=== PATIENT | male | born 1930 | race Caucasian/White ===

== ENCOUNTER 2016-12-13 11:59 | Inpatient (IN) | payer MEDICARE, OTHER ==
[~2016-12-13] VITALS: Ht 172.7 cm; Wt 85.0 kg
--- NOTE | ~2016-12-13 | ER ---
PATIENT'S NAME: RAMÍREZ [facility] AGE: 86 Y [address] ROOM: [place] [address] LOCATION: GPCU ADMIT DATE: 12/13/2016 ER/Outpatient Report DISCHARGE DATE: FAMILY PHYSICIAN: Adryan Lee MD ATTENDING PHYSICIAN: Sarah MAHONEY TIME OF ARRIVAL: 1159 hours. TIME OF EVALUATION: 1200 hours. CHIEF COMPLAINT: Chest pain. HISTORY OF PRESENT ILLNESS: The patient is an 86-year-old male presents to the emergency department today with chief complaint of chest pain. He reports this started 5 hours prior to arrival. Denies any nausea or vomiting. No shortness of breath. No diaphoresis. The patient reports this started in his left arm and radiated onto his left chest. It was a "hard" squeezing dull type pain. Denies any syncope. Denies any current pain at this time. The patient reports he has not had a heart cath in sometime and he has not had a stress test in sometime. The patient does have a history of heart disease with CABG and stenting. The patient was given aspirin and nitro en route. The nitro did resolve his pain. PAST MEDICAL HISTORY: Jlk-uwggxjw-sgrsqznku diabetes mellitus, emphysema, coronary artery disease, and hypertension. PAST SURGICAL HISTORY: Coronary artery bypass grafting, heart stents, tonsils, nose, and tongue. FAMILY HISTORY: Heart disease in brothers. SOCIAL HISTORY: The patient quit smoking in 1982. He denies any current tobacco use. Denies any alcohol or illicit drug use. ALLERGIES: OLD RED HEART CATH DYE. MEDICATIONS: Please see list. PATIENT'S NAME: RAMÍREZ [facility] AGE: 86 Y [address] ROOM: [address] [address] LOCATION: GPCU ADMIT DATE: 12/13/2016 ER/Outpatient Report DISCHARGE DATE: FAMILY PHYSICIAN: Adryan Lee MD ATTENDING PHYSICIAN: Sarah MAHONEY BIOLOGY TUTOR: Dr. Urrutia in [facility]. REVIEW OF SYSTEMS: All systems are reviewed by myself and are negative with the exception of those discussed in HPI and past medical history. PHYSICAL EXAMINATION: VITAL SIGNS: Weight 89.3 kg. Blood pressure 167/56, pulse 72, respiratory rate 16, temperature 97.6, and oxygen saturation 93% on room air. GENERAL: The patient is an 86-year-old male who appears of stated age in no acute distress at this time. HEENT: Normocephalic, atraumatic. Pupils are equal, round, and reactive to light. Mucous membranes are moist. NECK: Supple. There is no nuchal rigidity. CARDIOVASCULAR: Irregularly irregular. No murmurs, rubs, or gallops. LUNGS: Clear to auscultation bilaterally. No wheezes, rales, or rhonchi. ABDOMEN: Soft, nontender, and nondistended. No rebound, rigidity, or guarding. MUSCULOSKELETAL: The patient moves all 4 extremities. SKIN: Warm and dry. LABS AND X-RAYS: EKG is obtained and it is interpreted by myself at 12:09 shows atrial fibrillation with a rate of 72, normal axis, normal interval. No ST- elevation. There is ST depression noted 0.5 mm in V4, V5, V6. CBC is normal. INR is 3.25. D-dimer is normal. CMP is unremarkable except for BUN 50, creatinine 2.3. LFTs normal. Mag is normal. Cardiac enzymes are normal. Pro-BNP is 1804. Chest x-ray shows no acute process. IMPRESSION: 1. Chest pain, rule out acute coronary syndrome with history of coronary artery disease, atrial fibrillation. 2. Abnormal EKG. 3. Renal insufficiency, unclear chronicity at this time. 4. Elevated BNP. 5. Initial visit. EMERGENCY DEPARTMENT COURSE: The patient brought back to the examination. Seen and evaluated by myself. IV is established. Laboratory analysis and imaging are obtained as described above. The patient was on nitroglycerin drip and this is continued. The patient is currently pain-free at this time. The patient is reassessed. His pain is still resolved. I have discussed results with the patient and his PATIENT'S NAME: GRETA ELMORE [facility] AGE: 86 Y [address] ROOM: [id number] [place], [place] [address] [facility] ADMIT DATE: 12/13/2016 ER/Outpatient Report DISCHARGE DATE: FAMILY PHYSICIAN: Adryan Lee MD ATTENDING PHYSICIAN: Sarah MAHONEY. Their questions are answered. I have contacted Dr. Mahoney with the Hospitalist Service. He has seen and evaluated the patient down here in the emergency department. Dr. Deluca with Cardiology has seen and evaluated the patient down here in the emergency department as well. DISPOSITION: The patient is admitted under the care of Dr. Mahoney in the Hospitalist Service in stable condition. DO KJ ESTEBAN/franko /[id number] d: 12/14/16716 t: 12/15/16 0854, OUTPATIENT REPORT
--- NOTE | ~2016-12-13 | CON ---
PATIENT'S NAME: GRETA LUNDY [facility] AGE: 86 Y [address] ROOM: [place] [address] LOCATION: [facility] ADMIT DATE: 12/13/2016 Consultation DISCHARGE DATE: FAMILY PHYSICIAN: Adryan Lee MD ATTENDING PHYSICIAN: Hoang Sifuentes DATE OF CONSULTATION: 12/13/2016 CARDIOLOGY CONSULTATION REPORT REFERRING PHYSICIAN: Denzel Smith MD REASON FOR CONSULTATION: Chest pain and coronary artery disease. HISTORY OF PRESENT ILLNESS: Mr. Lundy is a pleasant, 86-year-old male with history of coronary artery disease status post two-vessel coronary artery bypass graft in 1983. The patient stated that he had probably balloon angioplasty in 1981. Subsequently he had two-vessel coronary artery bypass graft at [facility] in 1983. The patient stated that he has been symptomatic since the last few days with complaints of left arm pain and back pain. Today he had recurrent episodes of pain with radiation to the chest and hence, he was concerned and he was brought to the emergency room. Presently, he is chest pain-free. The patient stated he is physically not very active due to his chronic left knee pain. Has also chronic shortness of breath with exertion with no recent change. He denied any palpitations. REVIEW OF SYSTEMS: The patient denied any recent change in vision. No history of nausea or vomiting. No history of palpitations. No history of cough or expectoration. No history of diarrhea. The patient has a history of off and on constipation. Has chronic history of left knee pain. The patient stated his urinary stream is not good at the present time. Review of other systems is essentially negative. PAST MEDICAL HISTORY: 1. Coronary artery disease status post coronary artery bypass grafting. 2. Diabetes mellitus, diet controlled. 3. Hypertension. 4. Chronic left knee pain. 5. Atrial fibrillation, on long-term anticoagulation. PERSONAL HISTORY: PATIENT'S NAME: GRETA LUNDY [facility] AGE: 86 Y [address] ROOM: [place] [address] LOCATION: [facility] ADMIT DATE: 12/13/2016 Consultation DISCHARGE DATE: FAMILY PHYSICIAN: Adryan Lee MD ATTENDING PHYSICIAN: Hoang Sifuentes Nonsmoker. Nonalcoholic. FAMILY HISTORY: Five of his siblings had coronary artery disease. SOCIAL HISTORY: The patient stated that he lives by himself and his son lives nearby. CURRENT MEDICATIONS: At home include: 1. Metoprolol. 2. Hydrochlorothiazide. 3. Aspirin. 4. Warfarin. 5. Atorvastatin. 6. Gemfibrozil. 7. The doses are not available. PHYSICAL EXAMINATION: GENERAL APPEARANCE: He is awake, alert, and oriented and in no distress. VITAL SIGNS: His pulse rate is 76 beats per minute and it is irregularly irregular. Blood pressure 144/74 mmHg, and respiratory rate 18. He is afebrile. HEENT: His head is atraumatic and normocephalic. Tongue is moist. Pupils are bilaterally equal and reactive. NECK: No significant jugular venous distention is present. CARDIOVASCULAR: S1 and S2 are audible. They are irregular in rate and rhythm. No audible murmur is present. RESPIRATORY: Bilateral vesicular breath sounds are audible. The breath sounds are diminished at bases. A few basilar crackles are audible. GASTROINTESTINAL: Abdomen has mild distention. Soft and nontender. Bowel sounds are present. EXTREMITIES: Show no significant pedal edema. NEUROLOGIC: The patient is awake, alert, and oriented. No focal neurological deficits noted. SKIN: Warm and dry. LABORATORY DATA: His EKG showed atrial fibrillation with a ventricular rate of 68 beats per minute. Nonspecific T-wave abnormality in inferior and anterolateral leads. CBC; white blood cell count 8.8, hemoglobin 11.7, hematocrit 36.0, and platelet count 301,000. PTT 34.5, INR 3.25, and D-dimer 0.37. Serum biochemistry; sodium 135, potassium 4.2, chloride 99, CO2 of 25, glucose 175, calcium 9.4, BUN 50, and creatinine 2.3. AST 16, ALT 18, CPK 71, CK-MB less than 0.5, and magnesium 2.2. Troponin is less than 0.04. ProBNP is 1804. PATIENT'S NAME: GRETA LUNDY [facility] AGE: 86 Y [address] ROOM: [place], [place] [address] LOCATION: [facility] ADMIT DATE: 12/13/2016 Consultation DISCHARGE DATE: FAMILY PHYSICIAN: Adryan Lee MD ATTENDING PHYSICIAN: Hoang Sifuentes ASSESSMENT AND PLAN: 1. Coronary artery disease status post coronary artery bypass surgery. We will continue current medical therapy with aspirin, beta blockers, and statins. 2. Chest pain. In view of history of coronary artery disease, we will monitor patient on telemetry. Obtain serial EKGs and serial cardiac isoenzymes. Continue medical therapy with aspirin, beta blockers, and statins. If troponins are negative, we will schedule patient for stress test in a.m. 3. Renal failure. The patient has elevated BUN and creatinine. We will try to obtain previous records to see his baseline renal function. Management per hospitalist team. 4. Atrial fibrillation with controlled ventricular rate. His INR is supratherapeutic, and hence, Coumadin is being held. Once INR is subtherapeutic, we will start the patient on heparin or Lovenox, pending workup for his chest pain. 5. Diabetes, diet controlled. Management per hospitalist team. We will obtain previous records from Dr. Urrutia's office and from [facility] regarding coronary artery bypass graft report. We will follow the patient along with you. Thank you for allowing us in taking part in the care of this pleasant patient. The plan of care was discussed with the patient and his family. MD COLLETTE ZAPATA/franko /[id number] d: 12/13/16 1630 t: 12/30/16 1743, CONSULTATION REPORT
--- NOTE | ~2016-12-13 | ECHO ---
Transthoracic Echocardiography Report (TTE) Demographics Patient Name GRETA ELMORE Date of Study 12/14/2016 Patient Number [id number] Visit Number [id number] Date of 1930 Room Number G6323 Accession Number [id number] Gender Male Age 86 year(s) Referring Jesus Kang MD Senior Engineering Tech Colt Costa [facility], Physician Denzel Smith RVT Physician Interpreting Kacy Hoang Single Needle Tufting Machine Operator Physician Supervising Ordering Physician Denzel Smith MD/MLP Nurse Stress Leadership Development Instructor Conclusions Contractility Score Summary At rest the following contractility abnormalities were noted: Hypokinesis of the Mid inferior, the Apical inferior and the Basal inferior segments. Contractility of all other segments appeared normal. Summary The estimated left ventricular ejection fraction is 55%. Mild concentric left ventricular hypertrophy. Diastolic function indeterminate due to patient's arrhythmia. Mildly dilated right ventricle. The right atrium is severely dilated. The aortic valve is moderately sclerotic. Mild to moderate tricuspid regurgitation by color Doppler. Procedure Type of Study TTE procedure:2D Echocardiogram. Procedure Date Date: 12/14/2016 Start: 07:41 AM Study Location: Inpatient Portable Technical Quality: Adequate visualization Indications:Chest pain. Appropriate Use Criteria: 9 Patient Status: Routine Rhythm: Atrial fibrillation HR: 79 bpm BP: 143/80 mmHg Allergies - Contrast. M-Mode/2D Measurements LV Diastolic Dimension: 4.66 cm LV Systolic Dimension: 3.34 cm LV Septum Diastolic: 1.03 cm LV PW Diastolic: 1.05 cm AO Root Dimension: 2.7 cm Cardiac Output: 3.91 l/min AV Cusp Separation: 2 cm RV Diastolic Dimension: 2.87 cm LA volume: 45 ml LVOT: 2.1 cm RV Base: 4.12 cm LVOT VTI: 14.3 cm RV Mid: 2.37 cm LV Stroke volume: 49.5 ml TAPSE: 1.69 cm TDI-S': 10.2 cm/s Doppler Measurements AV Peak Velocity: 1.12 m/s MV Peak E-Wave: 0.99 m/s AV Peak Gradient: 5.02 mmHg AV Mean Gradient: 3 mmHg MV P1/2t: 51 msec LVOT Peak Velocity: 0.69 m/s TR Velocity:2.87 m/s TR Gradient:32.95 mmHg Estimated PASP: 37.95 mmHg Estimated RAP:5 mmHg Estimated RVSP: 38 mmHg E' Septal Velocity: 0.1 m/s E' Lateral Velocity: 0.16 m/s Findings Left Ventricle Mild concentric left ventricular hypertrophy. Diastolic function indeterminate due to patient's arrhythmia. Right Ventricle Mildly dilated right ventricle. Left Atrium Normal left atrial size. Right Atrium The right atrium is severely dilated. IVC measures 1.8 cm with inspiratory collapse. Mitral Valve Mild mitral regurgitation by color Doppler. Aortic Valve The aortic valve is moderately sclerotic. There is trivial aortic regurgitation by color Doppler. Tricuspid Valve Mild to moderate tricuspid regurgitation by color Doppler. The pulmonary pressure (RVSP) is 37.95 mmHg. Pulmonic Valve Normal pulmonic valve structure and function. Pericardial Effusion No evidence of pericardial effusion. Miscellaneous Visualized portions of the aortic root and ascending aorta appear normal in size. Pleural Effusion No evidence of pleural effusion. Contractility Score LV regional wall motion:(0-Non visualized 1-Normal 2-Hypokinesis 3-Akinesis 4-Dyskinesis 5-Aneurysm) Signature dtt: JOANN BURGER dtd: 12/14/16 0741 Physician Self Edit
--- NOTE | ~2016-12-13 | HP ---
PATIENT'S NAME: GRETA ELMORE [facility] AGE: 86 Y [address] ROOM: [place] [address] LOCATION: [facility] ADMIT DATE: 12/13/2016 History & Physical DISCHARGE DATE: FAMILY PHYSICIAN: Adryan Lee MD ATTENDING PHYSICIAN: Hoang Sifuentes DATE OF SERVICE: CHIEF COMPLAINT: Chest pain. HISTORY OF PRESENT ILLNESS: The patient is an 86-year-old gentleman with a history of COPD, CKD, diabetes mellitus, and CAD, status post CABG in 1982, who presents here with chest pain. The patient reports that around 9 o'clock this morning, he felt left arm numbness initially. Subsequently, numbness started radiating to his chest and back. He reports his chest pain as substernal, aching with squeezing quality with constant frequency and with maximum pain which he rates at 7/10. The patient reports that his symptoms was worsened on exertion and got better while he rested and when he was started on nitroglycerin drip via EMS. The patient denies diaphoresis, worsening shortness of breath, dizziness, productive cough, fever, chills, abdominal pain, nausea, vomiting, and diarrhea. The patient reports that the last time he had this symptom was in 1982 when he had his CABG. He reports that he follows with Dr. Purcell as his dance director as outpatient. The patient reports that he used to have routine stress test after CABG and his last stress test was done 5 years ago and was normal. The patient also reports a history of kidney disease but does not remember. He reports that his losartan was discontinued because of increasing kidney numbers. PAST MEDICAL HISTORY: 1. CAD status post CABG. 2. Possible chronic kidney disease. 3. COPD. 4. Diabetes mellitus type 2. 5. Hypertension. 6. Atrial fibrillation, on Coumadin. PAST SURGICAL HISTORY: CABG in 1982. FAMILY HISTORY: The patient reports that his 5th brother from coronary artery disease. PATIENT'S NAME: GRETA ELMORE [facility] AGE: 86 Y [address] 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 Distant history of smoking, he stopped smoking in 1982. Currently does not drink alcohol. Last drink close to 10 years ago. The patient lives by himself in the [place], [place]. MEDICATION: Currently being reconciled. REVIEW OF SYSTEMS: All systems have been reviewed and are negative except for what I mentioned in the HPI. PHYSICAL EXAMINATION: VITAL SIGNS: Temperature 97.6, blood pressure 167/86, heart rate of 72, respiratory rate of 16, oxygen saturation 93% on room air. GENERAL APPEARANCE: The patient is alert and awake. No acute distress. HEAD: Normocephalic, atraumatic. EYES: Extraocular muscles intact. NOSE: No nasal discharge. EARS: No ear discharge. ORAL CAVITY: Moist oral cavity. NECK: No JVD. CHEST: Clear to auscultation bilaterally. HEART: Irregularly irregular. No murmurs, rubs, or gallops heard. Distal pulses present. No JVD. ABDOMEN: Soft, nontender, and nondistended. Bowel sounds present. EXTREMITIES: Warm to touch. No edema. SKIN: Warm to touch. No lesion noted. MUSCULOSKELETAL: Range of motion intact. No obvious joint effusion noted. BATCH FREEZER OPERATOR: Alert and oriented x3. Motor and sensory grossly intact. LABORATORY DATA: Troponin x1 negative. D-dimer negative. Sodium 135, creatinine 2.3, BUN of 50, blood glucose 175, potassium of 4.2, CO2 of 25. Hemoglobin 11.7, white blood cell count of 8.8, and platelet of 301. Chest x-ray does not show any cardiopulmonary changes. EKG shows atrial fibrillation with rate of 72. There is mild ST depression on V3 to V6. ASSESSMENT AND PLAN: 1. Chest pain. The patient is an 86-year-old gentleman with past medical history of coronary artery disease, status post CABG in 1982, strong PATIENT'S NAME: GRETA ELMORE [facility] AGE: 86 Y [address] ROOM: [place], [place] [address] LOCATION: [facility] ADMIT DATE: 12/13/2016 History & Physical DISCHARGE DATE: FAMILY PHYSICIAN: Adryan Lee MD ATTENDING PHYSICIAN: Hoang Sifuentes family history of coronary artery disease, hypertension, and hyperlipidemia who presents here with somewhat typical chest pain. The patient reports that pain is similar to his last pain that resulted him to have CABG in 1982. Initial EKG shows mild ST changes from V3 to V6. Initial troponin negative. Etiology most likely secondary to coronary artery disease as the patient has a high pretest probability to have cardiac disease due to his risk factors and presentation. We will admit the patient for observation. We will get serial troponin. Keep the patient on telemonitor. We will acquire echocardiogram. We will acquire Lexiscan stress test. We will consult cardiology for further care and management. To continue aspirin, we will increase his Lipitor dose of 10 mg to 80 mg. We will start his home medications of Lopressor 75 mg b.i.d. We will discontinue nitroglycerin drip and have nitroglycerin as needed. 2. Elevated creatinine, etiology most likely chronic kidney disease. The patient reports that he had some kidney abnormality requiring his losartan to be discontinued. Currently I do not have any labs to compare today's creatinine of 2.3. We will acquire urine protein to creatinine ratio and we will also acquire kidney ultrasound to further investigate the kidney function. His baseline kidney function must be known and his disease has to be somewhat evaluated as patient might need coronary angiogram during this stay. If needed, we will consult Nephrology. 3. Persistent atrial fibrillation. The patient currently on Coumadin. INR of 3.12. We will hold the Coumadin today. We will start acquiring INR daily. Pharmacy to dose Coumadin to keep INR between 2-3. 4. Diabetes mellitus type 2. The patient reports that he was on metformin but no longer uses it. We will acquire hemoglobin A1c and start the patient on low-dose sliding scale. We will also start the patient on diabetic diet. 5. Chronic obstructive pulmonary disease, stable. DuoNeb as needed. 6. Hypertension. Continue Lopressor. Assessment and plan was discussed with the patient and family member. Greater than 50 minutes was spent on patient care. 50% of time spent on direct patient care and discussion with the patient and family. We will admit the patient for observation for ACS rule out. MD CHAY SCHNEIDER/franko PATIENT'S NAME: GRETA ELMORE [facility] AGE: 86 Y [address] ROOM: [place] [address] LOCATION: [facility] ADMIT DATE: 12/13/2016 History & Physical DISCHARGE DATE: FAMILY PHYSICIAN: Adryan Lee MD ATTENDING PHYSICIAN: Hoang Sifuentes /[id number] D: [id number] T: [id number] HISTORY & PHYSICAL
--- NOTE | ~2016-12-13 | CATH ---
Cardiac Diagnostic + PCI Report Demographics Patient Name RAMÍREZ HERNANDES Gender Male Date of 1930 Age 86 year(s) Patient Number [id number] Date of Study 12/14/2016 Visit Number [id number] Room Number G6[address] [place] [id number] Ht 172.72 cm Wt 84.82 kg Referring Jesus Lamb Primary Physician Physician Performing [facility] Secondary Physician Physician Natalya CANTRELL Diagnostic [facility] Assisting Physician Physician Natalya CANTRELL Interventional [facility] Physician Skidder Loader Physician Natalya CANTRELL Findings and Conclusions Diagnostic Findings and Conclusion 1. Critical one vessel disease. [place] RCA with diffuse and critical stenosis. 2. SVG sequential graft from RPDA to RPLV has critical lesion in distal portion of graft, 99% with KIANNA II flow. 3. Moderate disease in large diagonal branch about 50% stenosis. Diagnostic Recommendations 1. PCI of SVG graft with WERO, supplies Rt PLV/PDA. 2. Bare metal stent due to patient being on oral anticoagulation for atrial fibrillation. Interventional Findings and Conclusion Successful PCI of SVG to RPDA and RPLV branch with BMS using filter wire protection. asa, plavix for 1 month and then stop plavix. continue coumadin and asa ec 81 mgs daily indefinitely. Patient tolerated the procedure well. Interventional Recommendations Continue regular medications. Patient will be observed overnight. Hydration and followup creatinine. Continue current medications. Patient has been instructed to not lift anything more than 5 pounds for 1 week. I will plan on seeing the patient back in 2 week(s). Aggressive medical therapy for coronary artery disease. Recommend aggressive risk factor modification. ASA. Statin. Beta Beltran. Aggressive control of blood pressure. Dual Anti-platelet therapy. Cardiac diet . Optimization of medical therapy as an outpatient. Referral to Cardiac Rehabilitation now and at discharge . Procedure Description The patient was brought to the diagnostic cardiac catheterization-EP laboratory in the fasting, non-sedated state. Informed consent was obtained in the written and verbal form after the risks and benefits were explained. The patient had no further questions and agreed to proceed. The planned puncture-incision site(s) were shaved and prepped with ChloraPrep and draped in the usual sterile manner. Conscious sedation, supplemental oxygen, and pain control medications were delivered by a registered nurse under physician guidance. Surface ECG rhythm, blood pressure measurement, and pulse oximetry were monitored throughout the procedure. Arterial access. The access site was infiltrated with lidocaine. The vessel was entered with the Seldinger technique. A sheath was advanced into the vessel and used for catheter placement. Selective left coronary angiography. A catheter was advanced into the left coronary vessel ostium under Fluoroscopic guidance. Contrast was injected by hand. Images were obtained in multiple projections. Selective right coronary angiography. A catheter was advanced into the right coronary vessel ostium under fluoroscopic guidance. Contrast was injected by hand. Images were obtained in multiple projections. Selective SVG angiography. A catheter was advanced into the graft proximal anastomosis under fluoroscopic guidance. Contrast was injected by hand. Images were obtained in multiple projections. Left heart catheterization. A catheter was advanced across the aortic valve to the left ventricle under fluoroscopic guidance. Resting hemodynamics were obtained. Arterial artery hemostasis. Hemostasis was achieved. The patient was transferred to a regular nursing floor via cart accompanied by a nurse. The patient left the laboratory in stable condition. Diagnostic Cath Status: Urgent Interventional Cath Status: Urgent Procedure Procedure Type Diagnostic procedure:Angiography:, Coronary Angios, [facility] PCI procedure:Bare Metal Coronary Stent:, Graft Indications: Elevated cardiac enzymes. The procedure was explained in detail to the patient. Risks, complications and alternative treatments were reviewed. Written consent was obtained. Medications Reviewed with Patient prior to Procedure. Angiographic Findings Dominance: Right Cardiac Arteries and Lesion Findings LMCA: Normal (0% Stenosis). LAD: Abnormal.1. 20% mid. Collaterals to RCA. Lesion on 1st Diag: Proximal subsection.50% stenosis . Pre procedure KIANNA II flow was noted. Lesion on Mid LAD: Mid subsection.20% stenosis . Pre procedure KIANNA II flow was noted. LCx: Normal (0% Stenosis). RCA: Abnormal.1. Proximal to Mid 95% stenosis. 2. Distal 100 stenosed. Lesion on Prox RCA: Proximal subsection.95% stenosis . Pre procedure KIANNA I flow was noted. Graft Lesions Lesion on Aorta Right to R PDA (complex): Middle body.99% stenosis 12 mm length reduced to 0%. Pre procedure KIANNA II flow was noted. Post Procedure KIANNA III flow was present. A good run off was present.The lesion was diagnosed as a high risk lesion.Culprit lesion. Devices used - Filterwire 190 cm. Number of passes: 1. - Emerge Balloon 2.5 x 15. 1 inflation(s) to a max pressure of: 8 jennifer. - 4.0 x 20 Rebel Stent. 1 inflation(s) to a max pressure of: 14 jennifer. Cardiac Grafts - There is a Vein graft that originates at the Aorta Right and attaches to the R PDA and to the R PAV (Y graft). Cardiac Collaterals - collateral flow from the Dist LAD to the Dist RCA. Coronary Tree Procedure Data Procedure Date Date: 12/14/2016Start: 12:13 PMEnd: 01:26 PM Entry Locations - Retrograde Percutaneous access was performed through the Right Radial artery (Primary location). A 6 Fr sheath was inserted. Hemostasis was successfully obtained using an R band. Closure Comments: 15 cc of air in the R band performed by cindy mcintosh . Procedure Medications Order and Administration + + + + + !Time !Medication !Dosage !Route ! + + + + + !12/14/2016 12:07 !Fentanyl !50 mcg !I.V. ! !PM ! ! ! ! + + + + + !12/14/2016 12:08 !Versed !1 mg !I.V. ! !PM ! ! ! ! + + + + + !12/14/2016 12:15 !Oxygen !2 l/min !NC ! !PM ! ! ! ! + + + + + !12/14/2016 12:18 !Oxygen !4 l/min !NC ! !PM ! ! ! ! + + + + + !12/14/2016 12:21 !Radial Verapamil !2.5 mg ! ! !PM ! ! ! ! + + + + + !12/14/2016 12:30 !Angiomax (Bivalirudin) (ACC_5)!65 mg !I.V. bolus ! !PM ! ! ! ! + + + + + !12/14/2016 12:32 !Angiomax (Bivalirudin) (ACC_5)!1.75 !I.V. bolus ! !PM ! !mg/kg/hr ! ! + + + + + !12/14/2016 12:44 !D5W 1000ml w/ 150 mEq Sodium !0 ml/hr !I.V. ! !PM !Bicarb ! ! ! + + + + + !12/14/2016 01:02 !Oxygen !0 l/min !NC ! !PM ! ! ! ! + + + + + !12/14/2016 01:06 !D5W 1000ml w/ 150 mEq Sodium !80 ml/hr !I.V. ! !PM !Bicarb ! ! ! + + + + + !12/14/2016 01:06 !Plavix (ACC_8) !600 mg !P.O. ! !PM ! ! ! ! + + + + + Devices Used - A5 Fr. BS JR 4 Diag. Catheterwas used for:Right coronary angiography. - A5 Fr. BS JL 3.5 Diag. Catheterwas used for:Left coronary angiography. - A6 Fr. MPA1 JJ Guide Catheterwas used for:SVG Intervention. Contrast Material - Isovue 13982 ml Fluoroscopy Time: Diagnostic: 8:48 minutes. Total: 8:48 minutes. Fluoroscopy Dose: Diagnostic: 1011 mGy. Total: 1011 mGy. Estimated Blood Loss: 20 ml. Additional [facility] PCI Information PCI Indication:PCI for high risk Non-STEMI or unstable angina. Medical History Allergies - Contrast. Risk Factors The patient risk factors include: prior CABG on 07/18/1985;treated hypertension, family history of premature CAD, insulin-treated diabetes mellitus, chronic lung disease, last creatinine: 2.1 mg/dl, creatinine clearance: 31.42 ml/min and dyslipidemia. Admission Data Admission Date: 12/14/2016 Admission Time: 01:00 PM Admit Source: Emergency department Insurance Payors: Medicare. Admission Medications + +------+------+ + + + + !Medication !Dosage!Times !Last !Last !Administered !Comments ! ! ! !Per !Delivery !Delivery ! ! ! ! ! !Day !Date !Time ! ! ! + +------+------+ + + + + !Aspirin ! ! ! ! ! ! ! !(any) ! ! ! ! ! ! ! + +------+------+ + + + + !Statin ! ! ! ! ! ! ! !(any) ! ! ! ! ! ! ! + +------+------+ + + + + !Beta ! ! ! ! ! ! ! !Beltran ! ! ! ! ! ! ! !(any) ! ! ! ! ! ! ! + +------+------+ + + + + Clinical Evaluation Leading to Procedure - The patient's CAD presentation was assessed as: Non-STEMI.The symptom onset was first noted on 12/13/2016 12:00 AM(time was estimated). - The patient's anginal syndrome during the past two weeks was assessed as: Class III according to the [place] Cardiovascular Society Classification System (CCS). Anti-anginal medications were prescribed during the past two weeks. The medication is: Beta Blockers. - The patient has been in a state of heart failure within the past two weeks. - The patient's heart failure status was assessed as NYHA Class II. Snapshots Hemodynamics Condition: Rest O2 Consumption: Estimated: 227.57Heart Rate: 72 bpm Pressures (mmHg) +-----+ + !Site !Pressure ! +-----+ + !LV !92/13 ,13 ! +-----+ + !LV !93/12 ,10 ! +-----+ + !AO !120/70 (92) ! +-----+ + !LV !95/6 ,13 ! +-----+ + !AO !122/66 (89) ! +-----+ + Valve Gradients and Areas + +---------+---------+---------+ +---------+ + !Valve !Peak !Mean !Area !Index !Flow !Source ! + +---------+---------+---------+ +---------+ + !Aortic !0 !0 ! ! ! ! ! + +---------+---------+---------+ +---------+ + !Aortic !0 !0 ! ! ! ! ! + +---------+---------+---------+ +---------+ + Shunts Oxygen Values O2 Capacity 159.12 O2 Consumption 227.57 Discharge Data Discharge Date: 12/15/2016 Hospital Status: Inpatient Signatures dtt: NATALYA BURGER dtd: 12/14/16 1213 Physician Self Edit
--- NOTE | ~2016-12-13 | DS ---
PATIENT'S NAME: GRETA ELMORE [facility] AGE: 86 Y [address] ROOM: G6323 [place], [place] [address] LOCATION: GPCU ADMIT DATE: 12/14/2016 Discharge Summary DISCHARGE DATE: 12/15/2016 FAMILY PHYSICIAN: Adryan Lee MD ATTENDING PHYSICIAN: Sarah MAHONEY CONSULTING PHYSICIAN: Natalya Woodruff MD DISCHARGE DIAGNOSES: 1. Unstable angina status post PCI SVG to RPDA with bare metal stent. 2. Chronic atrial fibrillation on Coumadin. 3. Long-term anticoagulation, on Coumadin. 4. Essential hypertension. 5. Diabetes mellitus type 2. 6. Chronic kidney disease, stage 3-4. HOSPITAL COURSE: Please refer to admitting history and physical as dictated by Dr. Mahoney. Briefly, the patient was admitted to [facility] with complaints of chest pain. EKG showed atrial fibrillation with a rate of 68, nonspecific T-wave abnormalities. Troponin was less than 0.04. Cardiology was consulted. We did continue to monitor the patient on telemetry as well as serial EKGs and cardiac enzymes. We continued the patient on a baby aspirin as well as beta-blockers and statins. He was started on a diabetic diet. He was placed on isosorbide mononitrate 30 mg p.o. daily. His blood sugars were monitored with sliding scale insulin. Nephrology was consulted for the patient's chronic kidney disease. His serial cardiac enzymes did increase since admit and became as high as 0.375. The patient had initially been scheduled for a stress test. However with the recurrence of his chest pain and jaw pain on 12/14/2016, he was started on a nitroglycerin drip. He was placed on Mucomyst 600 mg p.o. b.i.d. He was also given D5W with bicarbonate prior to his catheterization and 6 hours post catheterization. On 12/14/2016, he was taken to the slab conditioner supervisor by Dr. Pappas where he underwent successful PCI of SVG to RPDA and RPLV branch with bare metal stent using filter wire protection. It was recommended that he continue his Coumadin and baby aspirin. He should be on Plavix for one month. Post catheterization, the patient had no recurrence of his chest pain. His creatinine was stable at 2.0 on the day of discharge. His hemoglobin A1c was found to be 9.1. I did discuss the need for good blood glucose control. It is recommended that he follow up with his primary care provider. His chronic kidney disease was stable. Chronic AFib, his heart rate was stable, 60s to 80s. INR 2.15 on the day of discharge. The patient remained on room air. His vital signs were stable. He was up ad fabi. He had no further chest pain. It was recommended on 12/15/2016 that the patient could be discharged to home with followup with Dr. Pappas in 2 weeks with ECG, proBNP, CMP, FLP, and INR; Dr. Adryan Lee in 1 week with a BMP and INR at that time as well as Dr. Schroeder in PATIENT'S NAME: GRETA ELMORE [facility] AGE: 86 Y [address] ROOM: [place] [address] LOCATION: GPCU ADMIT DATE: 12/14/2016 Discharge Summary DISCHARGE DATE: 12/15/2016 FAMILY PHYSICIAN: Adryan Lee MD ATTENDING PHYSICIAN: Sarah MAHONEY 1 month. LABORATORY DATA: Sodium remained stable, 135 to 139, potassium 3.7 to 4.2, calcium 8.9; BUN 50 upon admit, 46 prior to discharge; creatinine 2.3 upon admit, 2.0 prior to discharge; alkaline phosphatase 106, AST 14, ALT 15, phosphorus 2.9. GFR 27 upon admit, 32 prior to discharge. Magnesium 2.3. Total cholesterol 175, triglycerides 62, HDL 64, LDL 99. Hemoglobin A1c 9.1. ProBNP 1804. Troponins less than 0.040 upon admit, subsequent 0.040, 0.153, 0.375, 0.274, 0.228, 0.309, 0.372, 0.337. WBCs 8.8, hemoglobin 11.7, hematocrit 32.4, platelets 301. INR 2.15. RADIOLOGY REPORTS: Kidney ultrasound showed no obstructive uropathy, moderate chronic renal cortical changes, and prostate enlargement. Chest x-ray showed no evidence of acute cardiopulmonary disease. DISCHARGE INSTRUCTIONS: 1. The patient will be discharged to home. 2. Diet: Cardiac. 3. Activity: Risk intervention, weightbearing status as tolerated. 4. Cardiac rehab will contact the patient for followup. 5. Need to discuss diabetic control with Dr. Lee. Recent hemoglobin A1c 9.1. Followup appointment with Dr. Lee on 12/21/2016 with a BMP and PT/INR. 6. Follow up with Dr. Pappas on 12/31/2016 with EKG, proBNP, CMP, FLP, and PT and INR. 7. Follow up with Dr. Schroeder on 01/11/2017. DISCHARGE MEDICATIONS: 1. Nitroglycerin 0.4 mg sublingual as needed p.r.n. chest pain. 2. Breo Ellipta 62.5/25 mcg 1 puff every day. 3. Aspirin 81 mg p.o. daily. 4. Lipitor 40 mg p.o. daily. 5. Lopressor 50 mg p.o. twice daily. 6. Coumadin 1 mg p.o. daily along with 5 mg p.o. daily, total 6 mg daily. 7. Plavix 75 mg p.o. daily. Thank you for allowing us to participate in the care of this patient as he has been hospitalized at [facility]. JORGE GRIFFITH APRN FOR JIMI LORENZO MD KRR/franko [facility]: [facility] 86 Y [address] ROOM: [place] [address] [facility] ADMIT DATE: 12/14/2016 Discharge Summary DISCHARGE DATE: 12/15/2016 FAMILY PHYSICIAN: Adryan Lee MD ATTENDING PHYSICIAN: Sarah MAHONEY /[id number] CC: Adryan Lee MD d: 12/16/16 1031 t: 12/24/16 1833, DISCHARGE SUMMARY
--- NOTE | ~2016-12-13 | CON ---
PATIENT'S NAME: RAMÍREZ [facility] AGE: 86 Y [address] ROOM: [place] [address] LOCATION: GPCU ADMIT DATE: 12/13/2016 Consultation DISCHARGE DATE: FAMILY PHYSICIAN: Adryan Lee MD ATTENDING PHYSICIAN: Sarah JAIN DATE OF CONSULTATION: 12/14/2016 REFERRING PHYSICIAN: SUNDEEP VARGAS MD REQUESTING PHYSICIAN: Natalya Woodruff MD REASON FOR CONSULTATION: Elevated BUN and creatinine. HISTORY OF PRESENT ILLNESS: The patient is an 86-year-old white male with a history of diabetes for many years. He denies any diabetic retinopathy and neuropathy. Although the patient is not aware of elevated creatinine, but I noticed that his creatinine was 2.3 on July 2016 and also 1.9 in October 2016. The patient also has a history of COPD and chronic atrial fibrillation. He got admitted to the hospital with acute chest pain. His troponin was up. I have been asked to see him because he may need a cardiac catheterization. REVIEW OF SYSTEMS: GENERAL: He denies any fever or chills. He is slightly tired. He has been tired for more than a week. HEENT: Denies any sore throat or sinus congestion. CARDIOVASCULAR: He came in with chest pain. He is chest pain-free now. RESPIRATORY: Denies any shortness of breath, cough, or wheezing. GASTROINTESTINAL: Denies any abdominal pain, nausea, or vomiting. GENITOURINARY: He has slow urine flow. MUSCULOSKELETAL: Denies any joint pain or swelling. SKIN: Denies any rash or pruritus. IMMUNOLOGIC: Denies any allergies or hay fever. LYMPHATIC/HEMATOLOGIC: Denies any lymph node enlargement or easy bruising. ENDOCRINE: Denies any heat or cold intolerance. PSYCHIATRIC: Denies any sadness, crying spells, poor concentration, or panic attack. PAST MEDICAL HISTORY: COPD; diabetes mellitus; coronary artery disease; chronic atrial fibrillation, on anticoagulation therapy; and stage 3 chronic kidney disease. PAST SURGICAL HISTORY: PATIENT'S NAME: RAMÍREZ [facility] AGE: 86 Y [address] ROOM: [address] [address] LOCATION: GPCU ADMIT DATE: 12/13/2016 Consultation DISCHARGE DATE: FAMILY PHYSICIAN: Adryan Lee MD ATTENDING PHYSICIAN: Sarah JAIN Coronary artery bypass grafting. FAMILY HISTORY: No family history of kidney disease or dialysis. 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 He has a remote history of smoking, quit smoking in 1982. Does not drink any alcohol. He lives at home by himself in [place], [place]. ALLERGIES: ALLERGIC TO CONTRAST. MEDICATIONS: 1. Nitroglycerin intravenously per protocol. 2. Aspirin 81 mg a day. 3. Coumadin 5 mg every day. 4. Imdur 30 mg a day. 5. Lipitor 80 mg a day. 6. Lopressor 25 mg 3 pills twice a day. 7. Protonix 40 mg every day. 8. NovoLog by mild sliding scale. PHYSICAL EXAMINATION: GENERAL APPEARANCE: An 86-year-old very pleasant white male, lying in the hospital bed, not in acute distress. VITAL SIGNS: Temperature 97.8, pulse 83, systolic blood pressure 152 and diastolic 81. HEENT: Head: Normocephalic. Pupils are round and equal. Normal eyelid and conjunctivae. Oral cavity clear. Moist mucosa. Normal tonsillar fossa. NECK: Trachea is central. No thyromegaly. No bruit. CARDIAC: Heart sounds are audible in all the areas without any gallop or murmur. Pulse is irregularly irregular. LUNGS: Bilaterally clear to auscultate. No intercostal retractions. ABDOMEN: Soft and nontender. Cannot palpate any liver or spleen. EXTREMITIES: No clubbing or cyanosis. NEUROLOGIC: He is alert and oriented x3 and grossly nonfocal. SKIN: No sign of vasculitis. HIGHER PSYCHIATRIC FUNCTION: He has normal speech and memory for his age. LABORATORY DATA: WBC 8.8, hemoglobin 11.7, hematocrit 36, and platelet count of 301. Glucose 145, BUN 45, creatinine 2.1, sodium 139, potassium 4.0, chloride 104, bicarbonate 26, calcium 9.3, and GFR of 30. PATIENT'S NAME: GRETA ELMORE [facility] AGE: 86 Y [address] ROOM: [place] [address] [facility]: 12/13/2016 Consultation DISCHARGE DATE: FAMILY PHYSICIAN: Adryan Lee MD ATTENDING PHYSICIAN: Sarah JAIN ASSESSMENT: 1. Stage 3 chronic kidney disease. The patient has chronic kidney disease, and his creatinine has been up at least from July 2016. We do not have any chemistries from 2016. The patient denies any retinopathy and neuropathy. We do not know whether he has any active sediments in the urine, but his urine cmjoqqi-oa-shjqlngimi ratio was more than 1.0. The patient rarely takes nonsteroidals, and he has not taken any nonsteroidals for the last one week. He does not appear dehydrated at this time. 2. Chronic obstructive pulmonary disease. 3. Diabetes mellitus. 4. Coronary artery disease. 5. Chronic atrial fibrillation. 6. Allergy to contrast. PLAN: I will obtain his baseline chemistries from last year. We will check urinalysis with urine microscopic examination. As mentioned above, the patient has more than a gram of proteinuria. We will check a renal ultrasound to look at his renal anatomy. Did advise him to avoid all nonsteroidals and RODRÍGUEZ-2 inhibitors. He has mild to moderate risk of having contrast nephropathy, but his troponin was up. He came in with unstable angina. I would, therefore, put him on Mucomyst and intravenous bicarbonate. Did explain the risk of contrast nephropathy. The patient may also develop cholesterol embolization. We will follow renal function closely. Apparently, he has a history of allergy to iodinated contrast and we will have to premedicate him for that. I would like to thank Dr. Natalya Woodruff for allowing me to participate in this patient's care. M MD BRIDGETTE ADHIKARI/franko /[id number] CC: Adryan Lee MD d: 12/14/16 1408 t: 12/16/16 1326, CONSULTATION REPORT
[2016-12-13 12:25] LABS: BASOPHIL # 0.1 K/uL (0.0-0.2); BASOPHIL % 0.9 %; EOSINOPHIL # 0.8 K/uL (0.0-0.5); EOSINOPHIL % 8.7 %; HEMOGLOBIN 11.7 g/dL (11.0-16.0); IMMATURE GRANULOCYTE % 0.3 %; LYMPHOCYTE # 0.9 K/uL (0.8-4.0); LYMPHOCYTE % 10.7 %; MCH 28.7 pg (27.0-34.0); MCHC 32.5 gm/dL (32.0-36.5); MCV 88.5 fl (83.0-98.0); MONOCYTE # 0.6 K/uL (0.0-1.0); MONOCYTE % 6.6 %; MPV 9.2 fl (9.4-12.4); NEUTROPHIL # (ANC) 6.4 K/uL (1.4-9.0); NEUTROPHIL % 72.8 %; NRBC % 0 /100WBC (0-0.00); PLATELET COUNT 301 K/uL (150-450); RBC 4.07 M/uL (3.50-5.50); RDW-CV 12.5 % (11.9-14.6); WBC 8.8 K/uL (4.0-11.0)
[2016-12-13 12:35] LABS: INR - (THERAPEUTIC) 3.25 (0.92-1.07); PROTIME 34.5 SECONDS (9.8-11.4); PTT 41 SECONDS (25-32)
[2016-12-13 12:48] LABS: ALBUMIN 3.6 gm/dL (3.5-5.0); ALK PHOS 129 IU/L (33-138); ALT 18 IU/L (12-78); ANION GAP 15.2 (10.0-19.0); AST 16 IU/L (10-40); BLOOD UREA NITROGEN 50 mg/dL (6-24); CALCIUM 9.4 mg/dL (8.5-10.5); CHLORIDE 99 mMol/L (96-110); CO2 25 mMol/L (22-32); CPK 71 IU/L (35-332); CREATININE 2.3 mg/dL (0.6-1.3); ESTIMATED GFR (MDRD EQUATION) 27; MAGNESIUM 2.2 mg/dL (1.8-2.6); POTASSIUM 4.2 mMol/L (3.7-5.1); SODIUM 135 mMol/L (135-145); TOTAL BILIRUBIN 0.3 mg/dL (0.0-1.5); TOTAL PROTEIN 7.4 g/dL (6.0-8.4)
[2016-12-13 14:52] LABS: CPK 66 IU/L (35-332)
[2016-12-13] MEDS ORDERED: ANORO ELLIPTA1 EACH NS (16:44)
[2016-12-13] MEDS ORDERED: HYDROCHLOROTHIA25 MG PO (16:45)
[2016-12-13] MEDS ORDERED: LOPRESSOR50 MG PO (16:45)
[2016-12-13] MEDS ORDERED: LOPID600 MG PO (16:46)
[2016-12-13] MEDS ORDERED: LIPITOR10 MG PO (16:46)
[2016-12-13] MEDS ORDERED: ASPIRIN (CHILDR81 MG PO (16:47)
[2016-12-13] MEDS ORDERED: COUMADIN **IA1 MG PO (16:50)
[2016-12-13] MEDS ORDERED: COUMADIN ** IA5 MG PO (16:51)
--- NOTE | 2016-12-13 19:06 | NUR ---
ADMITTED TO PCU @ 1625 FOR C/O CHEST PAIN. A/O X3. UP WITH MINIMAL ASSIST. BROUGHT TO ED BY EMS. NITRO GTT DC'D PRIOR TO COMING TO FLOOR. IMDUR INITIATED. IV TO RIGHT HAND SL'D. ALLERGY TO "OLD RED MANUFACTURING SOFTWARE ENGINEER DYE." HISTORY OF DOUBLE BYPASS, BALLOON, DIZZINESS/VERTIGO, A-FIB, EMPHYSEMA, ARTHRITIS, JOINT STIFFNESS, ECZEMA, TYPE II DM.
--- NOTE | 2016-12-14 05:21 | NUR ---
Significant Event:A/Ox3. VSS on RA. Afebrile. Scattered bruising throughout body d/t coumadin. No c/o chest pain after SL nitro at shift change. TN-I elevated throughout shift last 0.375, notified. EKG at shift change showed no changes just A-fib (this is known). Nephrology consult today for kidney function. Follow up:Monitor labs and patient for CP. Plan is for ECHO, Lexiscan, and Renal U/S today. NPO since midnight.
[2016-12-14 08:46] LABS: CALCIUM 9.3 mg/dL (8.5-10.5); CREATININE 2.1 mg/dL (0.6-1.3)
[2016-12-14 08:49] LABS: INR - (THERAPEUTIC) 2.77 (0.92-1.07); PROTIME 29.4 SECONDS (9.8-11.4)
--- NOTE | 2016-12-14 11:31 | NUR ---
Intriduced self and role of care management to patient and family. He lives in [place] by himself. He states that he is able to do all [facility] own ADL's. He does use a cane for balance d/t vertigo. He has a son that lives 2 blocks away that assist as needed. They plan for him to return home on discharge. They deny any needs at this time. Will continue to follow.
--- NOTE | 2016-12-14 17:10 | NUR ---
Significant Event: A/OX3, VSS ON ROOM AIR. NO COMPLAINTS OF PAIN OR CHEST PAIN SINCE THIS MORNING. NTG DRIP IS OFF, SODIUM BICARB @ 80mL/HR & ALMOST OFF. NEW IV TO L)FA, SLIV TO R)HAND. PT. GETS UP SBA TO BATHROOM. R)RADIAL CATH SITE HAS NO OOZING/HEMATOMA NOTED TO SITE, TR-BAND ALMOST OFF. FAMILY HERE TODAY. POSSIBLE D/C TO HOME IN AM. PT. VOIDS FINE VIA URINAL. Follow up: CONTINUE WITH POC.
[2016-12-15 03:45] LABS: PROTIME 22.7 SECONDS (9.8-11.4)
[2016-12-15 03:51] LABS: ANION GAP 14.7 (10.0-19.0); CALCIUM 8.9 mg/dL (8.5-10.5); POTASSIUM 3.7 mMol/L (3.7-5.1); TOTAL PROTEIN 6.6 g/dL (6.0-8.4)
[2016-12-15 03:57] LABS: TOTAL BILIRUBIN 0.4 mg/dL (0.0-1.5)
[2016-12-15 03:58] LABS: INR - (THERAPEUTIC) 2.15 (0.92-1.07)
--- NOTE | 2016-12-15 04:45 | NUR ---
Significant Event: PATIENT IS A/O X3. VSS. HR 60'S. SBP 120-140'S. AFEBRILE. 02 SATS IN MID 90'S ON RA. NO C/O PAIN. LUNGS CLEAR/DIM THROUGHOUT. UP WITH SBA TO RESTROOM. BOWELS HYPOACTIVE. VOIDS PER URINAL. TR BAND TO RIGHT RADIAL SITE REMOVED. BAND AID WITH COBAN APPLIED. NO HEMATOMA NOTED AND CSM WNL. IV TO RIGHT HAND INTACT WITH OOZING. LEFT FOREARM IV SL. ON ACHS ACCUCHECKS. Follow up: CONTINUE TO MONITOR PER PLAN OF CARE.
[2016-12-15] MEDS ORDERED: NITROSTAT0.4 MG SL (11:44)
[2016-12-15] MEDS ORDERED: PLAVIX75 MG PO (11:44)
--- NOTE | 2016-12-15 13:01 | NUR ---
PATIENT A/OX3, VSS ON ROOM AIR. RIGHT RADIAL CATH SITE COVERED WITH BAND-AID/COBAN, NO OOZING OR HEMATOMA NOTED. PT. UP AD SOSA IN ROOM. VOIDS FINE, LARGE BM THIS AM. NO COMPLAINTS OF PAIN. IV'S REMOVED FROM RIGHT HAND & LEFT FOREARM WITHOUT DIFFICULTLY, BRUISING NOTED TO SITES. DISMISSAL INSTRUCTIONS, POST RADIAL CATH INSTRUCTIONS, NEW MEDICATIONS & SL NTG MEDICAITON GONE OVER WITH PATIENT. GAVE PATIENT COPY OF DIABETES ASSESSMENT FORM, PT. TO F/U WITH DR. BLANK IN [place] ON CURRENT HGBA1C OF 9.1. FAMILY HERE WITH PATIENT WHEN D/C INSTRUCTIONS WERE GONE OVER, NO FURTHER QUESTIONS AT THIS TIME. ALL BELONGINGS SENT HOME WITH PATIENT.
== END 2016-12-15 13:00 | disposition disaster alternative care site (69) | DRG 249 ==
LOC: GMED 11:59 → GPCU 16:11
PROVIDERS: Emergency Medicine; Internal Medicine Interventional Cardiology; ADMIT Internal Medicine
PROC: 4A023N7 Measurement of Cardiac Sampling and Pressure, Left Heart, Percutaneous Approach (ICD-10-PCS; principal; 2016-12-14)
PROC: B2111ZZ Fluoroscopy of Multiple Coronary Arteries using Low Osmolar Contrast (ICD-10-PCS; principal; 2016-12-14)
PROC: 02703DZ Dilation of Coronary Artery, One Artery with Intraluminal Device, Percutaneous Approach (ICD-10-PCS; principal; 2016-12-14)
DX: I21.4 Non-ST elevation (NSTEMI) myocardial infarction (principal); E11.22 Type 2 diabetes mellitus with diabetic chronic kidney disease; I48.1 Persistent atrial fibrillation; I25.110 Atherosclerotic heart disease of native coronary artery with unstable angina pectoris; J44.9 Chronic obstructive pulmonary disease, unspecified; E11.9 Type 2 diabetes mellitus without complications; N18.3 Chronic kidney disease, stage 3 (moderate); I12.9 Hypertensive chronic kidney disease with stage 1 through stage 4 chronic kidney disease, or unspecified chronic kidney disease; Z79.01 Long term (current) use of anticoagulants; Z82.49 Family history of ischemic heart disease and other diseases of the circulatory system; Z95.5 Presence of coronary angioplasty implant and graft; Z87.891 Personal history of nicotine dependence; Z95.1 Presence of aortocoronary bypass graft
CPT/HCPCS: C1725; C1876; C1884; C1887; G0378; J0461; J0583; J1200; J1644; J2250; J2370; J2930; J3010; J7030; J7050; J7060

== ENCOUNTER → 2016-12-13 | Outpatient (CLI) | payer MEDICARE, OTHER ==
[~2016-12-13] MED LIST: ANORO ELLIPTA1 EACH NS; ASPIRIN (CHILDR81 MG PO; COUMADIN ** IA5 MG PO; COUMADIN **IA1 MG PO; HYDROCHLOROTHIA25 MG PO; LIPITOR10 MG PO; LOPID600 MG PO; LOPRESSOR50 MG PO; NITROSTAT0.4 MG SL; PLAVIX75 MG PO
== END | disposition disaster alternative care site (69) ==
LOC: GAMB 11:28
DX: I20.9 Angina pectoris, unspecified (principal); I10 Essential (primary) hypertension; M79.602 Pain in left arm; J44.9 Chronic obstructive pulmonary disease, unspecified; R07.9 Chest pain, unspecified; Z95.828 Presence of other vascular implants and grafts; Z95.1 Presence of aortocoronary bypass graft; Z79.82 Long term (current) use of aspirin; Z79.01 Long term (current) use of anticoagulants

== ENCOUNTER → 2016-12-31 | Outpatient (CLI) | payer MEDICARE, OTHER ==
[2016-12-31 12:02] LABS: ALBUMIN 3.3 gm/dL (3.5-5.0); ANION GAP 10.5 (10.0-19.0); CREATININE 1.8 mg/dL (0.6-1.3); POTASSIUM 4.5 mMol/L (3.7-5.1); TOTAL PROTEIN 6.9 g/dL (6.0-8.4)
[2016-12-31 12:10] LABS: TOTAL BILIRUBIN 0.5 mg/dL (0.0-1.5)
== END | disposition disaster alternative care site (69) ==
LOC: LNHI 11:37
PROVIDERS: Internal Medicine Interventional Cardiology
DX: I48.1 Persistent atrial fibrillation (principal); I25.10 Atherosclerotic heart disease of native coronary artery without angina pectoris; I10 Essential (primary) hypertension; E11.65 Type 2 diabetes mellitus with hyperglycemia